=== PATIENT | male | born 1950 | race Caucasian/White ===

== ENCOUNTER → 2016-09-04 | Outpatient (CLI) | payer BC, OTHER | LOC: FLAB 10:38 | PROVIDERS: ATTEND Family Medicine | DX: R21 Rash and other nonspecific skin eruption (principal); R91.8 Other nonspecific abnormal finding of lung field ==

== ENCOUNTER 2016-09-07 17:27 | Emergency (ER) | payer BC, OTHER ==
--- NOTE | 2016-09-07 18:23 | EDPHY ---
H & P Stated Complaint: Infection to right leg. started 2 weeks ago. Generalised rash Time Seen by Provider: 09/07/16 18:01 HPI/ROS: CHIEF COMPLAINT: Full body rash HISTORY OF PRESENT ILLNESS: The patient is a 66 year old male presenting with full body rash and right leg lesion. He developed a erythematous lesion/ papule about 10 days ago on his lateral right calf. It has increased somewhat in size and developed a necrotic, scabbed, eschar center. About 4 days ago he developed full body rash. He was seen by Dr. Gatica for the rash and lesion and was started on Cephalexin. He has taken 4 days of the antibiotic, but patient has wound has remained erythematous and patient has noticed an increase in the size of the central eschar. Patient has full body rash has also remained constant. He states the rash is not itchy. He denies fever, vomiting, headache. No recent sickness. The patient saw Dr. Ayers today. Patient's prior evaluation for vasculitis has been nondiagnostic. Patient was referred to the emergency department for concerns regarding full body rash, vasculitis, as well as nonhealing wound on the lower extremity. REVIEW OF SYSTEMS: Aside from elements discussed in the HPI, a comprehensive 10-point review of systems was reviewed and is negative. PAST MEDICAL HISTORY: Denies. SOCIAL HISTORY: . VITAL SIGNS: Reviewed by me GENERAL: Pleasant. Conversant. HEENT: Benign. No posterior pharyngeal erythema. Neck is supple. LUNGS: Clear to auscultation bilaterally, no wheezes, rhonchi or rales. CARDIAC: Regular rate and rhythm, no rubs, murmurs or gallops. ABDOMEN: Soft, nontender, nondistended, bowel sounds normal. BACK: No CVA tenderness. EXTREMITIES: No trauma. No edema. Range of motion is normal throughout. NEURO: Alert and oriented, grossly nonfocal. SKIN: Palpable, non blanching, non itching diffuse petechiae. Quarter sized lesion to right lateral calf with surrounding erythema, thick eschar, and very small amount of serosanguineous drainage along the edge of the scab. PSYCHIATRIC: Normal mentation, no agitation. Portions of this note were transcribed by a medical assisting program director. I personally performed a history, physical exam, medical decision making, and confirmed accuracy of information the transcribed note. Source: Patient - Personal History Current Tetanus Diphtheria and Acellular Pertussis (TDAP): Yes - Medical/Surgical History Hx Asthma: No Hx Chronic Respiratory Disease: No Hx Diabetes: No Hx Cardiac Disease: No Hx Renal Disease: No Hx Cirrhosis: No Hx Alcoholism: No Hx HIV/AIDS: No Hx Splenectomy or Spleen Trauma: No - Social History Smoking Status: Never smoked Constitutional: Initial Vital Signs Temperature (C) 36.8 C 09/07/16 17:31 Heart Rate 60 09/07/16 17:31 Respiratory Rate 16 09/07/16 17:31 Blood Pressure 128/80 H 09/07/16 17:31 O2 Sat (%) 93 09/07/16 17:31 O2 Delivery Mode Room Air Allergies/Adverse Reactions: No Known Allergies Allergy (Unverified 09/07/16 17:35) Home Medications: Medication Instructions Recorded Cephalexin [Keflex (RX)] 500 mg PO TID 7 Days 09/07/16 Doxycycline Hyclate 100 mg PO BID 7 Days 09/07/16 Flomax 09/07/16 Medical Decision Making Procedures: Procedure: Wound care. The patient's nonhealing wound was located on the right calf. Risks, benefits, alternatives discussed with the patient and consent obtained. The eschar was elevated and the lesion was incised. No purulent drainage was expressed. Dressing ressing was placed. The patient tolerated the procedure well. The procedure was performed by myself. ED Course/Re-evaluation: Rash appears to be vasculitis. Patient's labs drawn 4 days ago are reassuring. Normal platelets. Strep design for possible post streptococcal vasculitis as well as BMP were ordered. Central eschar was removed and wound was cultured. Full body rash appears to be a vasculitis. It is nonblanching palpable rash. It is full body, including the upper extremities, chest, back, abdomen, and lower extremities. 7:45 p.m.: I placed the patient on doxycycline and increase the Keflex to 500 mg three times daily. He is scheduled to see Dr. Gatica in 2 days. Differential Diagnosis: Differential diagnosis of the patient's rash was considered including but not limited to allergic reaction, urticaria, viral exanthem, erythema multiforme, Kerns-Sanya syndrome, petechial rash, vasculitis, scarlatiniform rash, HSP, HUS, cellulitis, or purpuric rash. - Data Points Laboratory Results: Laboratory Results 09/07/16 19:16 09/07/16 09/07/16 09/07/16 Unknown Unknown 19:16 Sodium 138 mEq/L mEq/L (134-144) Potassium 4.7 mEq/L mEq/L (3.5-5.2) Chloride 102 mEq/L mEq/L (97-110) Carbon Dioxide 26 mEq/l mEq/l (22-31) Anion Gap 10 mEq/L mEq/L (8-16) BUN 16 mg/dL mg/dL (7-23) Creatinine 0.9 mg/dL mg/dL (0.7-1.3) Estimated GFR > 60 Glucose 80 mg/dL mg/dL (70-100) Calcium 9.3 mg/dL mg/dL (8.5-10.4) Streptozyme < 25 IU/mL IU/mL (<=200) Group A Strep Screen NEGATIVE (NEGATIVE) Group A Strep DNA Cancelled Departure - Departure Disposition: Home, Routine, Self-Care Clinical Impression: Vasculitis, Infected wound Condition: Good Instructions: Acute Rash (ED), Acute Wounds (ED) Additional Instructions: Take full course of Doxycycline as well as Keflex. Followup with Dr. Gatica on Wednesday as scheduled. Further information regarding your vasculitis can be discussed with Dr. Gatica, she will be able to look at the extra labs that were done in the emergency department. Referrals: Justa Gatica MD [Primary Care Provider] - As per Instructions Prescriptions: Cephalexin [Keflex (RX)] 500 mg PO TID 7 Days Doxycycline Hyclate 100 mg PO BID 7 Days Report Scribed for: Jennifer Wallace Report Scribed by: Muriel Lu Date of Report: 09/07/16 Time of Report: 19:47
[2016-09-07 20:00] LABS: ANION GAP 10 mEq/L (8-16); CALCIUM 9.3 mg/dL (8.5-10.4); CARBON DIOXIDE 26 mEq/l (22-31); CHLORIDE 102 mEq/L (97-110); CREATININE 0.9 mg/dL (0.7-1.3); GLOMERULAR FILTRATION RATE > 60; GLUCOSE 80 mg/dL (70-100); POTASSIUM 4.7 mEq/L (3.5-5.2); SODIUM 138 mEq/L (134-144)
[2016-09-07 20:16] LABS: STREPTOZYME < 25 IU/mL (<=200)
[2016-09-07 20:35] VITALS: BP 119/82; PULSE 68; RESP 14; TEMP 98.8; O2SAT 96
== END 2016-09-07 20:23 | disposition home or self-care (01) ==
DX: I77.6 Arteritis, unspecified (principal); L08.9 Local infection of the skin and subcutaneous tissue, unspecified

== ENCOUNTER → 2018-11-30 | Outpatient (CLI) | payer OTHER, MEDICARE | LOC: FIMAGING 15:43 ==